=== PATIENT | female | born 1990 | race Caucasian/White ===

== ENCOUNTER → 2017-03-11 | Outpatient (CLI) | payer BC | END | disposition home or self-care (01) | LOC: C.LAB1850 13:27 | PROVIDERS: ATTEND Obstetrics & Gynecology | DX: Z83.49 Family history of other endocrine, nutritional and metabolic diseases (principal) ==

== ENCOUNTER → 2017-11-21 | Outpatient (CLI) | payer OTHER | END | disposition home or self-care (01) | LOC: C.LAB 08:15 | PROVIDERS: ATTEND Family Medicine | DX: R19.7 Diarrhea, unspecified (principal) ==

== ENCOUNTER → 2017-11-29 | Outpatient (CLI) | payer OTHER ==
--- NOTE | 2017-11-29 12:44 | DIAGNOSTIC IMAGING REPORT ---
TWO VIEW CHEST CLINICAL HISTORY: Fever. FINDINGS: PA and lateral chest radiographs are obtained. No prior studies are available for comparison at the time of dictation. The cardiomediastinal silhouette is unremarkable. The lungs and pleural spaces are clear. There is no pneumothorax. The bony thorax appears intact. There is minimal thoracic scoliosis. IMPRESSION: No active disease in the chest. Electronically signed by: Eb Nava M.D. 11/29/2017 12:43 PM Dictated Date/Time: 11/29/2017 12:42 PM
[2017-11-29 13:46] LABS: HEP C IGG 13 YRS+OLDER_RFLX NEG (NEG)
[2017-12-03 13:38] LABS: HEPATITIS A IGM TC 51813E NON-REACTIVE (NON-REACTIVE); HEPATITIS B CORE IGM TC51854R NON-REACTIVE (NON-REACTIVE)
== END | disposition home or self-care (01) ==
LOC: C.LAB 11:29
PROVIDERS: ATTEND Family Medicine
DX: R50.9 Fever, unspecified (principal)

== ENCOUNTER → 2017-12-05 | Outpatient (CLI) | payer OTHER | END | disposition home or self-care (01) | LOC: C.LAB1850 10:42 | PROVIDERS: ATTEND Internal Medicine Infectious Disease | DX: Z00.00 Encounter for general adult medical examination without abnormal findings (principal) ==

== ENCOUNTER → 2017-12-20 | Outpatient (CLI) | payer OTHER ==
[~2017-12-20] MED LIST: OPTIRAY 320 IV PRN
--- NOTE | 2017-12-20 14:21 | ECHOCARDIOGRAM REPORT ---
*NOTICE TO RECEIVING REPUBLICAN AGENCY This information is strictly Confidential and protected under [place] law. [place] law prohibits you from making any further disclosure of this information unless further disclosure is expressly permitted by the written consent of the person to whom it pertains or is authorized by law. A general authorization for the release of medical or other information is not sufficient for this purpose. Hospital accepts no responsibility if the information is made available to any other person, INCLUDING THE PATIENT. Interpretation Summary * Name: BIGG REDD Study Date: 12/20/2017 12:49 PM BP: 120/78 mmHg * Patient Location: [facility] HR: 113 * : 1990 (M/d/yyyy) Gender: Female Height: 66 in * Age: 26 yrs Ethnicity: CA Weight: 160 lb * Ordering Physician: Bruna Vazquez * Referring Physician: Bruna Vazquez D.O. * Performed By: [facility] * * Reason For Study: SOB, Tachycardia, Fever * BSA: 1.8 m2 * -- Conclusions -- * Left ventricular systolic function is normal. * Normal diastolic function * The inferior vena cava is mildly dilated. Procedure Details * A complete two-dimensional transthoracic echocardiogram was performed (2D, M-mode, Doppler and color flow Doppler). Left Ventricle * The left ventricle is normal in size. * There is normal left ventricular wall thickness. * Ejection Fraction = 55-60%. * Left ventricular systolic function is normal. * Normal diastolic function * The left ventricular wall motion is normal. Right Ventricle * The right ventricle is normal in size and function. * The right ventricular systolic function is normal as assessed by tricuspid annular plane systolic excursion (TAPSE) (normal >1.5 cm). Atria * The left atrial size is normal. * Right atrial size is normal. Mitral Valve * The mitral valve is grossly normal. * Significant mitral regurgitation is absent. Tricuspid Valve * The tricuspid valve is not well visualized, but is grossly normal. * There is trace tricuspid regurgitation. * Right ventricular systolic pressure is normal. Aortic Valve * The aortic valve is normal in structure and function. * The aortic valve is trileaflet. * No hemodynamically significant valvular aortic stenosis. * There is no significant aortic regurgitation. Great Vessels * The aortic root is normal size. Pericardium/Pleural * There is no pericardial effusion. Great Vessels * The inferior vena cava is mildly dilated. MMode 2D Measurements and Calculations IVSd 0.86 cm IVSs 1.1 cm LVIDd 4.9 cm LVIDs 3.5 cm LVPWd 0.94 cm LVPWs 1.2 cm IVS/LVPW 0.91 FS 28.7 % EDV(Teich) 114.1 ml ESV(Teich) 51.3 ml EF(Teich) 55.1 % EDV(cubed) 119.4 ml ESV(cubed) 43.3 ml EF(cubed) 63.7 % % IVS thick 31.6 % % LVPW thick 25.2 % LV mass(C)d 153.8 grams LV mass(C)dI 84.5 grams/m\S\2 LV mass(C)s 128.2 grams LV mass(C)sI 70.5 grams/m\S\2 SV(Teich) 62.8 ml SI(Teich) 34.5 ml/m\S\2 SV(cubed) 76.1 ml SI(cubed) 41.8 ml/m\S\2 Ao root diam 3.4 cm Ao root area 8.9 cm\S\2 ACS 1.6 cm LA dimension 3.1 cm asc Aorta Diam 2.1 cm LA/Ao 0.91 EDV(MOD-sp4) 93.0 ml ESV(MOD-sp4) 44.9 ml EF(MOD-sp4) 51.7 % EDV(MOD-sp2) 84.7 ml ESV(MOD-sp2) 34.0 ml EF(MOD-sp2) 59.9 % SV(MOD-sp4) 48.1 ml SI(MOD-sp4) 26.4 ml/m\S\2 SV(MOD-sp2) 50.8 ml SI(MOD-sp2) 27.9 ml/m\S\2 Doppler Measurements and Calculations MV E max gianni 91.1 cm/sec MV A max gianni 72.8 cm/sec MV E/A 1.3 MV P1/2t max gianni 110.0 cm/sec MV P1/2t 79.7 msec MVA(P1/2t) 2.8 cm\S\2 MV dec slope 404.2 cm/sec\S\2 MV dec time 0.14 sec Ao V2 max 126.1 cm/sec Ao max PG 6.4 mmHg Ao max PG (full) 3.0 mmHg LV V1 max PG 3.4 mmHg LV V1 max 91.8 cm/sec PA V2 max 107.1 cm/sec PA max PG 4.6 mmHg TR max gianni 203.9 cm/sec
--- NOTE | 2017-12-20 15:37 | DIAGNOSTIC IMAGING REPORT ---
CHEST CT, ABDOMEN, PELVIS WITH CONTRAST CT DOSE: 776.24 mGycm HISTORY: FEVER, short of breath, TACHYCARDIA PT WENT TO [facility] FIRST TECHNIQUE: Multiaxial CT images of the chest , abdomen, pelvis were performed following the intravenous administration of contrast. Oral contrast was also administered. A dose lowering technique was utilized adhering to the principles of ALARA. COMPARISON: Chest 11/29/2017. FINDINGS: There is a 7 mm left thyroid nodule. No mediastinal or hilar lymphadenopathy. The mediastinal vascular structures are within normal limits. No pleural or pericardial effusions. No fractures within the visualized osseous structures of the chest. No pneumothorax. The central airways are patent. The lungs are clear. No pneumoperitoneum. No pneumatosis. No fractures within the visualized osseous structures of the abdomen or pelvis. No hepatic or splenic masses. Small focal hypodensity within the left hepatic lobe adjacent to the falciform ligament is consistent with focal fat. The main portal vein is patent. The pancreas, gallbladder, adrenal glands, and kidneys are unremarkable. No retroperitoneal lymphadenopathy. The bladder, uterus, and adnexa are within normal limits. No bowel wall thickening or obstruction. Normal appendix. IMPRESSION: A 7 mm left thyroid nodule. Otherwise, no significant abnormality identified within the chest, abdomen, or pelvis. Electronically signed by: Yovanny Hillman M.D. 12/20/2017 3:36 PM Dictated Date/Time: 12/20/2017 3:25 PM
== END | disposition home or self-care (01) ==
LOC: C.CPL 12:29
PROVIDERS: ATTEND Family Medicine
DX: R50.9 Fever, unspecified (principal); R06.02 Shortness of breath; R00.0 Tachycardia, unspecified; E04.1 Nontoxic single thyroid nodule

== ENCOUNTER → 2017-12-23 | Outpatient (CLI) | payer OTHER | END | disposition home or self-care (01) | LOC: C.LAB 11:05 | PROVIDERS: ATTEND Family Medicine | DX: R00.0 Tachycardia, unspecified (principal); R50.9 Fever, unspecified ==

== ENCOUNTER → 2017-12-24 | Outpatient (CLI) | payer OTHER ==
--- NOTE | 2017-12-24 10:34 | DIAGNOSTIC IMAGING REPORT ---
THYROID ULTRASONOGRAPHY CLINICAL HISTORY: SHORTNESS OF BREATH COMPARISON STUDY: No previous studies for comparison. FINDINGS: The right lobe measures 51 x 15 x 19 mm. Left lobe measures 44 x 11 x 19 mm. Within the posterior aspect of the left lobe, there is a microlobulated mixed echogenicity, than wide 10 x 8 x 7 mm thyroid nodule. Ultrasound-guided biopsy is recommended in follow-up based on morphologic criteria IMPRESSION: 10 x 8 x 7 mm left lobe thyroid nodule. Ultrasound-guided FNA is recommended in follow-up based on morphologic criteria Electronically signed by: Ti Armando M.D. 12/24/2017 10:32 AM Dictated Date/Time: 12/24/2017 10:29 AM
== END | disposition home or self-care (01) ==
LOC: C.ULTRBC 09:13
PROVIDERS: ATTEND Family Medicine
DX: E04.1 Nontoxic single thyroid nodule (principal)

== ENCOUNTER → 2018-01-02 | Outpatient (CLI) | payer OTHER ==
[2018-01-02 17:18] LABS: ALBUMIN 4.2 gm/dl (3.4-5.0); TOTAL PROTEIN 8.1 gm/dl (6.4-8.2)
[2018-01-06 13:24] LABS: ANTI-SS-A <1.0 NEG AI (<1.0 NEG); ANTI-SS-B <1.0 NEG AI (<1.0 NEG); COMPLEMENT C3 TC 44859W 148 MG/DL (90-180); COMPLEMENT C4 TC 44982E 48 MG/DL (16-47)
== END | disposition home or self-care (01) ==
LOC: C.LAB 15:37
PROVIDERS: ATTEND Internal Medicine
DX: R50.9 Fever, unspecified (principal)

== ENCOUNTER → 2018-02-25 | Outpatient (CLI) | payer OTHER | END | disposition home or self-care (01) | LOC: C.PAPS 12:03 | PROVIDERS: ATTEND Obstetrics & Gynecology | DX: Z01.419 Encounter for gynecological examination (general) (routine) without abnormal findings (principal) ==

== ENCOUNTER → 2018-02-28 | Outpatient (CLI) | payer OTHER ==
--- NOTE | 2018-03-03 07:47 | MAMMOGRAPHY REPORT ---
ULTRASOUND OF RIGHT BREAST: 02/28/2018 CLINICAL HISTORY: The patient reports that her provider felt a palpable right breast lump during a ro utine clinical exam. The provider note reports that the finding is a mobile dense area measuring 3-4 cm in the far lateral right breast. COMPARISON: No prior exams were available for comparison. TECHNIQUE: Real-time targeted ultrasound of the right breast was performed. FINDINGS: Real-time, high-resolution targeted ultrasound was performed of the area of the right breas t palpable lump felt by the patient's provider. The patient cannot pinpoint the exact location of th e lump but pointed to the right upper outer quadrant far laterally when asked the general location of the lump. The provider note reports that the lump is located in the far lateral right breast, there fore, ultrasound was performed of the far right lateral breast, which shows sonographically normal ti ssue without evidence of a mass or other suspicious sonographic abnormality. IMPRESSION: ACR BI-RADS CATEGORY 1: NEGATIVE No suspicious sonographic abnormality in the far lateral right breast in the general location of the palpable lump felt by the ordering provider. Note that the patient cannot pinpoint the exact locatio n of the lump. There is no sonographic evidence of malignancy. Recommend clinical follow-up; any de cision to biopsy should be based on clinical grounds. The patient was verbally notified of the results. Radha Rebolledo M.D. /:02/28/2018 13:25:58 Electromedical Equipment Technician: Neris HALE(Demetri)(M), [facility] letter sent: Normal 1/2 BI-RADS Code: ACR BI-RADS Category 1: Negative
== END | disposition home or self-care (01) ==
LOC: C.MAMM 12:58
PROVIDERS: ATTEND Obstetrics & Gynecology
DX: N63.11 Unspecified lump in the right breast, upper outer quadrant (principal)

== ENCOUNTER → 2018-05-27 | Outpatient (CLI) | payer OTHER ==
--- NOTE | 2018-05-27 16:19 | MAMMOGRAPHY REPORT ---
ULTRASOUND OF LEFT BREAST: 05/27/2018 CLINICAL HISTORY: 27-year-old woman presents with a newly identified small lump and possible associat ed stalk behind her nipple extending into the lower outer periareolar region of the left breast. On p hysical exam, the patient's provider elicited a small amount of left nipple discharge that looked lik e blood-tinged pus. She was subsequently placed on antibiotics being treated for presumed mastitis. COMPARISON: Comparison is made to exams dated: 04/04/2018 ultrasound, 04/04/2018 mammogram, and 8 ultrasound - [facility]. FINDINGS: Targeted ultrasound was performed in the periareolar and retroareolar left breast in the ar ea of palpable concern pointed out by the patient, and also to assess for a possible cause of a singl e episode of blood-tinged nonspontaneous nipple discharge. A few normal milk ducts are identified. There is no evidence of a suspicious solid or cystic mass. No intraductal mass identified. No focal skin thickening or drainable fluid collection identified. IMPRESSION: ACR BI-RADS CATEGORY 2: BENIGN There is no sonographic evidence of malignancy or other suspicious abnormality to explain a single ep isode of blood-tinged nipple discharge. Therefore, continued clinical monitoring is recommended. If the nipple discharge occurs again, sending the fluid for cytology as well as surgical consultation w ith possible repeat breast imaging is recommended. These results and recommendations were discussed with the patient and her at the time of the exam. Ranjana Garcia M.D. ay/:05/27/2018 14:33:38 Early Childhood Specialist: RT Raúl(Demetri)(M), [facility] letter sent: Normal 1/2 BI-RADS Code: ACR BI-RADS Category 2: Benign
== END | disposition home or self-care (01) ==
LOC: C.MAMM 13:52
PROVIDERS: ATTEND Family Medicine
DX: N63.20 Unspecified lump in the left breast, unspecified quadrant (principal); N64.59 Other signs and symptoms in breast